=== PATIENT | male | born 1970 | race Caucasian/White ===

== ENCOUNTER 2018-12-19 07:30 | Inpatient (IN) | payer OTHER ==
[~2018-12-19] VITALS: Ht 170.2 cm; Wt 98.4 kg
[2018-12-19 08:22] VITALS: BP 153/98
--- NOTE | 2018-12-19 12:56 | NUR ---
RECEIVED PATIENT FROM OR AT THIS TIME. S/P RIGHT TOTAL KNEE REPLACEMENT. PATIENT RESTING COMFORTABLY IN BED. NO APPARENT DISTRESS OR DISCOMFORT NOTED. PATIENT A/O X4 AND ABLE TO MAKE NEEDS KNOWN. PATIENT ABLE TO FOLLOW COMMANDS. PATIENT IS A MEDSURG PATIENT. PATIENT DENIES CHEST PAIN/PRESSURE AT THIS TIME. PULSES PALPABLE. NO EDEMA NOTED. PATIENT ABLE TO WIGGLE TOES ON BOTH FEET. PATIENT REPORTS SENSATION IN BOTH FEET. BREATHING EVEN AND UNLABORED. NO RESPIRATORY DISTRESS OR DISCOMFORT NOTED. PATIENT DENIES SHORTNESS OF BREATH. BOWEL SOUNDS ACTIVE X4. PATIENT DENIES ABD PAIN, NAUSEA, AND VOMITING. VOIDS FREELY WITH NO C/O BURNING/DISCOMFORT. GENERALIZED WEAKNESS. PATIENT HAS X1 INCISION WITH SUTURES, DERMABOND, MEPILEX DRESSING, EILEEN WRAP, POLAR ICEPACK IN PLACE, AND WRAPPED AGAIN WITH EILEEN WRAP. IV PATENT AND INTACT. ALL QUESTIONS AND CONCERNS ADDRESSED. ALL NEEDS ATTENDED TO. WILL CONTINUE TO MONITOR
--- NOTE | 2018-12-19 13:02 | NUR ---
PATIENT C/O 5/10 SURGICAL SITE PAIN AT THIS TIME. PATIENT MEDICATED WITH NORCO PO PRN. PATIENT TOLERATED MEDICATION WELL. NO APPARENT ADVERSE EFFECTS NOTED. ALL NEEDS ATTENDED TO. WILL CONTINUE TO MONITOR
[2018-12-19 13:28] VITALS: BP 127/86
--- NOTE | 2018-12-19 16:07 | NUR ---
ADMINISTERED SCHEDULED TORADOL IVP AT THIS TIME. PATIENT RESTING COMFORTABLY IN BED. NO APPARENT ADVERSE EFFECTS NOTED. ALL NEEDS ATTENDED TO. WILL CONTINUE TO MONITOR
[2018-12-19 18:04] VITALS: BP 118/79
--- NOTE | 2018-12-19 18:48 | NUR ---
PATIENT RESTING COMFORTABLY IN BED AT THIS TIME. NO APPARENT DISTRESS OR DISCOMFORT NOTED. IV PATENT AND INTACT INFUSING NORMAL SALINE @ 80ML/HR. ICE PACK IN PLACE TO RIGHT KNEE. ALL QUESTIONS AND CONCERNS ADDRESSED. ALL NEEDS ATTENDED TO. SAFETY PRECAUTIONS MAINTAINED. WILL ENDORSE ALL CARE TO AGRICULTURAL INSPECTOR NURSE
--- NOTE | 2018-12-19 19:10 | NUR ---
PATIENT MEDICATED WITH NORCO PO PRN AT THIS TIME FOR 5/10 SURGICAL PAIN IN RIGHT KNEE. ENDORSED TO SYLWIA TO REASSESS PAIN MEDICATION. ALL NEEDS ATTENDED TO.
--- NOTE | 2018-12-19 19:21 | NUR ---
RECEIVED PATIENT IN BED AWAKE, ALERT AND ORIENTED WITH NO C/O POST OPERATIVE PAIN TO RIGHT KNEE. DRESSING CDI WITH EILEEN WRAP AND POLAR ICE MACHINE IN PLACE. BREATHING EASY AND NONLABOR SATTING AT 99% RA. IV TO LAC INTACT AND INFUSING WELL. WILL CONTINUE TO MONITOR. CALL LIGHT WITHIN REACH.
[2018-12-19 20:25] VITALS: BP 115/73
--- NOTE | 2018-12-20 00:11 | NUR ---
DUE PAIN MED GIVEN, TORADOL 15MG IVP. WILL CONTINUE TO MONITOR.
--- NOTE | 2018-12-20 03:43 | NUR ---
AWAKE THIS TIME C/O POST OPERATIVE PAIN 8/10 PER PT TO RT LOWER EXTREMETY, NORCO 1 TAB PO GIVEN PRESCRIBED. WILL CONTINUE TO MONITOR.
[2018-12-20 05:01] VITALS: BP 108/72
--- NOTE | 2018-12-20 05:12 | NUR ---
C/O POST OPERATIVE PAIN X2 THE ENTIRE SHIFT AND MEDICATED PRESCRIBED. POLAR MACHINE ICE REPLACED. ALL NEEDS ATTENDED.
[2018-12-20 06:07] LABS: BASOPHIL % 0.2 % (0-2); PLATELET COUNT 197 x10^3mcL (130-400)
[2018-12-20 06:13] LABS: RED CELL DISTRIBUTION WIDTH 14.6 % (11.5-14.5)
[2018-12-20 06:37] LABS: CALCIUM 7.5 mg/dL (8.5-10.1); CARBON DIOXIDE 27.8 mmol/L (21-32); CHLORIDE SERUM 106 mmol/L (98-107); CREATININE SERUM 0.7 mg/dL (0.7-1.3); GFR1 > 60 mL/min; GLUCOSE SERUM 108 mg/dL (74-106); POTASSIUM SERUM 4.5 mmol/L (3.5-5.1); SODIUM SERUM 141 mmol/L (136-145)
--- NOTE | 2018-12-20 07:15 | NUR ---
PT IS AAOX4. MED SURG PT. PT HAS SX INCISION TO R KNEE S/P TOTAL KNEE REPLACEMENT. INCISION CLOSED WITH ONE INCISION AND DERMABOND. COVERED WITH EILEEN DRESSING WITH [facility] ICE PACK IN PLACE. R LEG ELEVATED ON PILLOW. PT HAS REPORTS OF R LEG PAIN, ROUTINE TORADOL WILL BE GIVEN. PT HAS IVF RUNNING TO LAC, SITE WNL. NO S/S OF INFECTION NOTED. CALL LIGHT WITHIN REACH. BED IN LOWEST POSTION. FALL PROTOCOL MAINTAINED. BED ALARM ON.
--- NOTE | 2018-12-20 07:59 | NUR ---
TORADOL 15MG IVP ROUNTINE PAIN MED GIVEN FOR R THROBBING KNEE PAIN 11/21. RECEIVED PT AAOX4. DENIES H/A AND DIZZINESS. NORMAL S1S2. LUNG SOUNDS CTA, ON R/A. ABDOMEN SOFT, NONTENDER, NONDISTENDED. BOWEL SOUNDS ACTIVE X4. PT DENIES N/V/D AND CONSTIPATION. PT S/P R KNEE TOTAL KNEE REPLACEMENT. SITE COVERED WIT EILEEN WRAP, UNABLE TO ASSESS AT THIS TIME. PT HAS R LEG TRACE EDEMA. R FOOT ELEVATED ON PILLOW. PERIPHERAL PULSES MODERATELY PALPABLE. R FOOT WARM AND DRY. IV CATH LAC WITH FLUIDS RUNNING SITE WNL. PT R LEG ELEVATED ON PILLOW WITH ICE PACK MACHINE IN PLACE. CALL LIGHT WITHIN REACH. BED IN LOWEST POSTION. BED ALARM ON.
--- NOTE | 2018-12-20 08:09 | NUR ---
ROUTINE MEDS GIVEN AND TOLERATED WELL. PT IS SITTING UP IN BED EATING BREAKFAST WITH R LEG ELEVATED AND ICE PACK IN PLACE. PT STATES R KNEE PAIN IS SUBSIDING TO 6/10. WILL CONTINUE TO MONITOR.
[2018-12-20 08:12] VITALS: BP 120/77
--- NOTE | 2018-12-20 10:05 | NUR ---
NORCO 5/325MG PO GIVEN FOR R KNEE PAIN 10/21. PT RESPOSTIONED FOR COMFORT, EXTRA FLUIDS GIVEN. POLAR CARE CUBE REPLINISHED WITH ICE. RESP EVEN AND UNLABORED. WILL CONTINUE TO MONITOR.
--- NOTE | 2018-12-20 10:44 | NUR ---
IVF REPLENISHED, PT RESTING PEACEFULLY. STATED THE PAIN IS MUCH BETTER NOW, 06/21. CALL LIGHT WITHIN REACH.
--- NOTE | 2018-12-20 11:19 | NUR ---
DILAUDID 1 MG IVP GIVEN FOR R KNEE PAIN 10/21. RESP EVEN AND UNLABORED. CALL LIGHT WITHIN REACH. WILL CONTINUE TO MONITOR. BED IN LOWEST POSITION. BED ALARM ON.
--- NOTE | 2018-12-20 11:40 | NUR ---
REASSESSED PAIN FOLLOWING DILAUDID ADMINISTRATION. PT STATES IS MUCH BETTER NOW. 05/21. PT PARTICIPATING IN P/T TRAINING AT THIS TIME.
[2018-12-20 12:02] VITALS: BP 134/85
--- NOTE | 2018-12-20 13:18 | NUR ---
REPORTED TO DR. MEDINA THAT PT'S PAIN IS NOT CONTROLED BY PRN MEDS. RECEIVED ORDER FOR CELEBREX 200MG PO Q 12 HOURS FOR PAIN. ORDER NOTED AND CARRIED OUT. PT MADE AWARE.
--- NOTE | 2018-12-20 13:55 | NUR ---
CELEBREX 200MG PO GIVEN FOR PAIN 09/20. EXTRA FLUIDS GIVEN AND ENCOURAGED. RESP EVEN AND UNLABORED. CALL LIGHT WITHIN REACH.
--- NOTE | 2018-12-20 14:40 | NUR ---
PT REPORTS PAIN IS NOT TOLERABLE. PT DOES NOT HAVE PAIN MEDICATION PRN THAT CAN BE GIVEN AT THIS TIME. PAGED DR. TREVIZO, AWAITING CALL BACK.
--- NOTE | 2018-12-20 15:06 | NUR ---
DILAUDID 1 MG IVP GIVEN FOR PAIN 11/21. RESP EVEN AND UNLABORED. PT REPOSITIONED FOR COMFORT. CALL LIGHT WITHIN REACH.
--- NOTE | 2018-12-20 15:27 | NUR ---
PT GIVEN BED BATH, PICTURES OF L LOWER LEG ABRASION AND R GREAT TOE WOUND TAKEN FOR DISCHARGE PURPOSES, SIGNED BY BRIANNE CHANEL AND PLACED IN PT'S CHART. PT GOWN CHANGE TO TRANSFER GOWN. CALL LIGHT WITHIN REACH. BED IN LOW POSITION.
--- NOTE | 2018-12-20 15:32 | NUR ---
PT SLEEPING AT THIS TIME. RESP EVEN AND UNLABORED. NO DISTRESS NOTED. R LEG ELEVATED ON PILLOW. POLAR CARE COLD COMPRESS IN PLACE. WILL CONTINUE TO MONITOR.
[2018-12-20 16:17] VITALS: BP 161/93
--- NOTE | 2018-12-20 18:22 | NUR ---
NORCO 5/325MG PO GIVEN FOR R KNEE PAIN 10/21. EXTRA FLUIDS GIVEN AND ENCOURAGED. R FOOT REPOSITIONED FOR COMFORT. RESP EVEN AND UNLABORED. CALL LIGHT WITHIN REACH.
--- NOTE | 2018-12-20 18:43 | NUR ---
PT STATES PAIN HAS DECREASED TO 5/10 S/P NORCO PO. PT R KNEE ELEVATED ON PILLOW WITH POLAR CUBE COLD COMPRESS IN PLACE. IVF RUNNING TO [facility], SITE WNL. RESP EQUAL AND UNLABORED. CALL LIGHT WITHIN REACH. BED IN LOWEST POSITION. BED ALARM ON. FALL PROTOCOL FOLLOWED. WILL ENDORSE ALL CARE TO NOC CRYSTAL.
[2018-12-20 19:40] VITALS: BP 147/87
--- NOTE | 2018-12-20 19:43 | NUR ---
PATIENT RECEIVED IN BED AWAKE,ALERT AND ORIENTED X4, SPEECH CLEAR DENIED HEADACHE NOR DIZZINESS. BREATHING EVEN AND UNLABORED BS CLEAR DIMINISHED BASES, ON ROOM AIR SAT 100% DENIED COUGH NOR SOB. DENIED CHEST PAINS, HR=89BPM, MED/SURG PATIENT. IV SITE TO LAC PATENT AND INTACT SITE CLEAR, TAPE SECURED. 12/19/18 S/P RT TOTAL KNEE REPLACEMENT, DRESSING CDI, POLAR CUBE CARE THERAPHY IN USE, ICE CONTAINER REFILLED WITH ICE EARLIER PER AM NURSE, PILLOW UNDERNEATH RT KNEE NOTED, SWELLING TO RT KNEE TO FOOT NOTED, PULSES MODERATE, DENIED N/T SENSATION, BRISK CAP REFILL, PATIENT COMPLAINED OF RT KNEE SURGICAL PAIN RATED AT 7/10 INFORMED ABOUT PAIN MANAGEMENT. SAFETY/FALL PRECAUTIONS MAINTAINED. INFORMED ABOUT POC THIS SHIFT. WILL CONTINUE TO MONITOR.
[2018-12-20 19:44] VITALS: BP 147/87
--- NOTE | 2018-12-20 20:42 | NUR ---
PATIENT MEDICATED WITH DILAUDID 1 MG IVP FOR COMPLAINT OF RT KNEE SURGICAL PAIN WHICH HE RATED AT AT 8/10, MADE COMFORTABLE IN BED AND WILL MONITOR EFFECTIVENESS OF MEDS.
--- NOTE | 2018-12-20 21:01 | NUR ---
PATIENT CHECKED THIS TIME, SLEEPING EASILY AWAKEN WHEN NAME CALLED, STATED STILL HAVE PAIN BUT LESS AND RATED IT AT 3/10. COMFORTABLE. WILL CONTINUE TO MONITOR.
--- NOTE | 2018-12-21 00:28 | NUR ---
RT KNEE SURGICAL PAIN IS BACK RATED PAIN AT 6/10, MEDICATED PRN AND MADE COMFORTABLE IN BED, WILL CHECK EFFECTIVENESS.
--- NOTE | 2018-12-21 00:49 | NUR ---
CHECKED, PATIENT SLEEPING,AWAKEN VERBALLY, STATED PAIN IS AT 2/10 AND FEELS BETTER.
--- NOTE | 2018-12-21 05:37 | NUR ---
COMPLAINED OF RT KNEE SURGICAL PAIN, THROBBING, RATED AT 7-8/10, MEDICATED PRN,MADE COMFORTABLE IN BED. WILL RE-CHECK EFFECTIVENESS.
[2018-12-21 05:42] VITALS: BP 149/87
[2018-12-21 06:26] LABS: CALCIUM 7.6 mg/dL (8.5-10.1); CARBON DIOXIDE 30.4 mmol/L (21-32); CHLORIDE SERUM 106 mmol/L (98-107); CREATININE SERUM 0.5 mg/dL (0.7-1.3); GFR1 > 60 mL/min; GLUCOSE SERUM 106 mg/dL (74-106); POTASSIUM SERUM 4.1 mmol/L (3.5-5.1); SODIUM SERUM 142 mmol/L (136-145)
[2018-12-21 06:28] LABS: BASOPHIL % 0.2 % (0-2); PLATELET COUNT 183 x10^3mcL (130-400); RED CELL DISTRIBUTION WIDTH 13.7 % (11.5-14.5)
--- NOTE | 2018-12-21 06:29 | NUR ---
PATIENT STATED HAD THE BEST NIGHT EVER AND WAS ABLE TO SLEEP GOOD, WAS MEDICATED AND RECEIVED RELIEF. IV SITE NO SIGN OF INFILTRATION, POLAR ICE CUBE CONTAINER ICE PLACED DESIRED LABEL Q3HRS. RT KNEE WITH PILLOW UNDERNEATH MAINTAINED. SAFETY PRECAUTIONS MAINTAINED.WILL ENDORSE CONTINUITY OF CARE TO INCOMING NURSE.
--- NOTE | 2018-12-21 07:10 | NUR ---
REPORT RCD FROM CRYSTAL GARDUNO. PATIENT AWAKE, ALERT, NO DISTRESS NOTED. REPORTS NO PAIN AT THIS TIME TO RIGHT KNEE, POST TOTAL KNEE REPLACEMENT. POLAR ICE IN PLACE, RLE ELEVATED ON 2 PILLOWS. IV TO LAC WITH NS 80 ML/HR WITHOUT COMPLICATIONS. BED LOW, CALL LIGHT WITHIN REACH. WILL MONITOR.
--- NOTE | 2018-12-21 08:20 | NUR ---
RCD CALL FROM DR. HARVEY, SURGEON. PER DOCTOR, PATIENT IS TO BE DISCHARGED HOME TODAY, RCD TELEPHONE ORDER FOR DISCHARGE. DISCUSSED WITH DOCTOR THAT PATIENT HAS NOT BEEN WELL CONTROLLED WITHOUT IV PAIN MEDICATIONS. DISCUSSED WILL OBSERVE PATIENT ON PO PAIN MEDICATIONS THIS MORNING AND SEE HOW HE DOES. PER PATIENT HE HAS A PRESCRIPTION FOR NORCO ALREADY AT HOME AND SURGEON TO CALL IN [facility] FOR HIM WELL.
--- NOTE | 2018-12-21 08:30 | NUR ---
PATIENT AMBULATING WITH WALKER WITH PHYSICAL THERAPY, NO ACUTE DISTRESS.
[2018-12-21 09:15] VITALS: BP 130/79
--- NOTE | 2018-12-21 09:15 | NUR ---
SHIFT ASSESSMENT PERFORMED AND DOCUMENTED. PATIENT REPORTING INCREASED PAIN AFTER WORKING WITH PHYSICAL THERAPY, 10/21 AT THIS TIME. DISCUSSED PAIN CONTROL OPTIONS, PLAN FOR DISCHARGE. PATIENT AGREED TO NORCO, GIVEN PER MAY. WILL MONITOR.
[2018-12-21 12:13] VITALS: BP 130/79
--- NOTE | 2018-12-21 12:36 | NUR ---
PATIENT'S SISTER IS ON THE WAY TO PICK HIM. DISCUSSED PAIN MEDICATION, PATIENT FEELS COMFORTABLE DISCHARGING AT THIS TIME ON ORAL NORCO AND CELEBREX. ASSISTED PATIENT TO GET DRESSED. IV TO LAC REMOVED, SITE WITHOUT COMPLICATIONS. DISCUSSED ICE MACHINE USE. PATIENT AMBULATED USING WALKER TO BATHROOM. PATIENT UNDERSTANDS FOLLOWUP PLANN WITH HIS SURGEON AND PHYSICAL THERAPY OUTPATIENT. ALL QUESTIONS AND CONCERNS ANSWERED. WILL ASSIST PATIENT WHEN HIS SISTER ARRIVES.
--- NOTE | 2018-12-21 12:50 | NUR ---
PATIENT ESCORTED FROM THE UNIT VIA WHEELCHAIR WITH ALL HIS BELONGINGS INCLUDING WALKER, ICE MACHINE, AND CLOTHING. SISTER IS BRINGING CAR TO FRONT OF HOSPITAL. PATIENT DROPPED OFF AT DISCHARGE OFFICE TO CRYSTAL BURCH. PATIENT IN NO ACUTE DISTRESS AT THIS TIME.
--- NOTE | 2018-12-21 15:26 | NUR ---
PHYSICAL THERAPY DAILY NOTES CO-SIGN All documentation done by the Naturopath for 12/21/18 has been reviewed. I agree with the documentation. Reviewed/Co-Signed by: Danielle Mendoza PT Documentation Done by:RONALD TAYLOR PTA
== END 2018-12-21 12:52 | disposition home or self-care (01) | DRG 302 ==
LOC: MU 07:30
PROVIDERS: ADMIT Orthopaedic Surgery
PROC: 0SRC0J9 Replacement of Right Knee Joint with Synthetic Substitute, Cemented, Open Approach (ICD-10-PCS; principal; 2018-12-19 07:30)
DX: M17.11 Unilateral primary osteoarthritis, right knee (principal); Z79.82 Long term (current) use of aspirin; Z79.899 Other long term (current) drug therapy
CPT/HCPCS: 97110-GP; 97112-GP; 97116-GP; 97530-GP; C1713; C1776; G0378; J0690; J1170; J1885; J2250; J2270; J2405; J2704; J3010; J3490; J7030